=== PATIENT | male | born 2000 | race Caucasian/White ===

== ENCOUNTER 2024-07-26 20:15 | Observation (INO) | payer OTHER ==
[2024-07-26] MEDS ORDERED: ONDANSETRON 4 MG/2 ML VIAL ONE (22:00)
[2024-07-26] MEDS ORDERED: FAMOTIDINE 20 MG/50 ML IVPB 20 MG/50 ML MG IVPB ONE (22:00)
[2024-07-26] MEDS ORDERED: ACETAMINOPHEN INJECTION 100 ML ONE (22:00)
[2024-07-26 22:13] LABS: BASO % 0.3 % (0-2.0); EOS % 1.5 % (0-4.5); HEMATOCRIT 43.3 % (35.4-49); HEMOGLOBIN 14.6 GM/dL (11.7-16.9); LYMPH % 24.9 % (8-40); MCH 29.5 pg (25.7-33.7); MCHC 33.8 g/dl (32.0-35.9); MEAN CELL VOLUME 87.4 fl (80-96); MEAN PLT VOLUME 8.3 fl (7.5-11.1); MONO % 12.2 % (3.8-10.2); NEUT % 61.1 % (42.8-82.8); PLATELET COUNT 179 10^3/uL (134-434); RBC 4.95 M/mm3 (4.00-5.60); RDW 12.4 % (11.9-15.9); WHITE BLOOD COUNT 6.4 K/mm3 (4.0-10.0)
[2024-07-26] MEDS: SODIUM CHLORIDE 0.9% 500 ML INFUS.BAG IV ONE (22:13)
[2024-07-26] MEDS: ACETAMINOPHEN 1000 MG/100 ML BAG IVPB ONE (22:13)
[2024-07-26 22:14] LABS: INR 1.13 (0.83-1.09)
[2024-07-26] MEDS: ONDANSETRON 4 MG/2 ML VIAL IVPUSH ONE (22:14)
[2024-07-26 22:17] LABS: ACTIVATED PTT 30.8 SECONDS (25.2-36.5)
[2024-07-26] MEDS: FAMOTIDINE 20 MG/50 ML IVPB 20 MG/50 ML MG IVPB ONE (22:32)
[2024-07-26 22:33] LABS: POTASSIUM 3.4 mmol/L (3.5-5.1)
[2024-07-26 22:35] LABS: CALCIUM 8.8 mg/dL (8.5-10.1)
[2024-07-26 22:36] LABS: ALBUMIN 3.6 g/dl (3.4-5.0); BLOOD UREA NITROGEN 11.5 mg/dL (7-18)
[2024-07-26 22:39] LABS: CREATININE 0.9 mg/dL (0.55-1.3)
[2024-07-26 22:40] LABS: BILIRUBIN,TOTAL 0.4 mg/dL (0.2-1); TOT PROT 7.4 g/dl (6.4-8.2)
[2024-07-26] MEDS ORDERED: CEFTRIAXONE 1 G/50 ML PREMIX 50 ML IVPB ONE (22:40)
[2024-07-26] MEDS: CEFTRIAXONE 1,000 MG in DEXTROSE 5%-WATER - 50 ML IVPB ONE (23:04)
[2024-07-26] MEDS ORDERED: POTASSIUM CHLORIDE ORAL LIQUID 20 MEQ/15 ML ONE (23:25)
[2024-07-26] MEDS ORDERED: MAGNESIUM 1GM/D5W - 1 GM/100 ML IVPB IVPB ONE (23:25)
[2024-07-26] MEDS: MAGNESIUM 1GM/D5W - 1 GM/100 ML IVPB IVPB ONE (23:45)
[2024-07-26] MEDS: POTASSIUM CHLORIDE ORAL LIQUID 20 MEQ/15 ML PO ONE (23:45)
[2024-07-27] MEDS ORDERED: ONDANSETRON 4 MG TABLET PO PRN (00:26)
[2024-07-27] MEDS ORDERED: AZITHROMYCIN IVPB 500 MG/250 ML BAG IVPB ONE (00:37)
[2024-07-27] MEDS: AZITHROMYCIN IVPB 500 MG/250 ML BAG IVPB SCH ×3 (00:45→18:20)
[2024-07-27] MEDS ORDERED: AZITHROMYCIN IVPB 500 MG/250 ML BAG IVPB SCH (01:00)
[2024-07-27] MEDS ORDERED: BENZOCAINE/MENTH/CETYLPYRD CL 1 EACH LOZENGE MM ONE (01:44)
[2024-07-27] MEDS ORDERED: ACETAMINOPHEN 500 MG TABLET (FP) ONE (01:45)
[2024-07-27] MEDS: SODIUM CHLORIDE 1,000 ML IV STA (01:54)
[2024-07-27] MEDS: BENZOCAINE/MENTH/CETYLPYRD CL 1 EACH LOZENGE MM ONE (01:54)
[2024-07-27 06:22] LABS: POTASSIUM 4.1 mmol/L (3.5-5.1)
[2024-07-27 06:27] LABS: ALBUMIN 3.4 g/dl (3.4-5.0); BLOOD UREA NITROGEN 10.7 mg/dL (7-18); CALCIUM 8.8 mg/dL (8.5-10.1); CREATININE 0.9 mg/dL (0.55-1.3); MAGNESIUM 2.2 mg/dL (1.8-2.4)
[2024-07-27 06:28] LABS: PHOSPHOROUS 2.9 mg/dL (2.5-4.9)
[2024-07-27 06:29] LABS: BASO % 0.3 % (0-2.0); BILIRUBIN,TOTAL 0.6 mg/dL (0.2-1); EOS % 1.5 % (0-4.5); HEMATOCRIT 43.3 % (35.4-49); HEMOGLOBIN 14.4 GM/dL (11.7-16.9); LYMPH % 22.3 % (8-40); MCH 29.2 pg (25.7-33.7); MCHC 33.2 g/dl (32.0-35.9); MEAN CELL VOLUME 87.9 fl (80-96); MEAN PLT VOLUME 8.5 fl (7.5-11.1); MONO % 10.9 % (3.8-10.2); PLATELET COUNT 172 10^3/uL (134-434); RBC 4.93 M/mm3 (4.00-5.60); RDW 12.3 % (11.9-15.9); TOT PROT 7.2 g/dl (6.4-8.2)
[2024-07-27] MEDS ORDERED: ENOXAPARIN NA (PORCINE) 40 MG/0.4 ML DISP.SYRIN SQ SCH (10:00)
[2024-07-27] MEDS: ACETAMINOPHEN 500 MG TABLET (FP) PO PRN (11:34)
[2024-07-27] MEDS: BENZOCAINE/MENTH/CETYLPYRD CL 1 EACH LOZENGE MM PRN (11:35)
[2024-07-27 13:32] VITALS: BMI 24.3
[2024-07-27 21:04] VITALS: BP 112/75; PULSE 97; RESP 18; TEMP 98.6
[2024-07-27] MEDS ORDERED: CEFTRIAXONE 1 G/50 ML PREMIX 50 ML IVPB SCH (23:00)
== END 2024-07-27 23:40 | disposition home or self-care (01) ==
LOC: JER 20:15 → JERBED 22:15 → J5S 07-27 10:01
PROVIDERS: ADMIT Student in an Organized Health Care Education/Training Program; ATTEND Internal Medicine
PROC: 3E03329 Introduction of Other Anti-infective into Peripheral Vein, Percutaneous Approach (ICD-10-PCS; principal; 2024-07-26)
PROC: 3E033NZ Introduction of Analgesics, Hypnotics, Sedatives into Peripheral Vein, Percutaneous Approach (ICD-10-PCS; 2024-07-26)
PROC: 3E033GC Introduction of Other Therapeutic Substance into Peripheral Vein, Percutaneous Approach (ICD-10-PCS; 2024-07-26)
PROC: 3E0337Z Introduction of Electrolytic and Water Balance Substance into Peripheral Vein, Percutaneous Approach (ICD-10-PCS; 2024-07-26)
DX: J18.9 Pneumonia, unspecified organism (principal); R11.2 Nausea with vomiting, unspecified; R19.7 Diarrhea, unspecified
CPT/HCPCS: 0241U-QW; 36415; 71046-TC-FY; 80053; 83735; 84100; 84484; 85025; 85610; 85730; 87651; 87899; 93005; 93010; 96361; 96365; 96366; 96367; 96375; 99285-25; G0378; J0131